=== PATIENT | male | born 1965 | race Native Hawaiian/Other Pacific Islander ===

== ENCOUNTER 2016-03-08 02:11 | Emergency (ER) | payer OTHER ==
[~2016-03-08] VITALS: Ht 175.3 cm; Wt 99.8 kg
== END 2016-03-08 03:19 | disposition home or self-care (01) ==
LOC: ED 02:11
DX: S52.002A Unspecified fracture of upper end of left ulna, initial encounter for closed fracture (principal); S80.01XA Contusion of right knee, initial encounter; W17.89XA Other fall from one level to another, initial encounter; Y92.69 Other specified industrial and construction area as the place of occurrence of the external cause
CPT/HCPCS: 96372; 99283; J1885